=== PATIENT | male | born 1945 | race Caucasian/White ===

== ENCOUNTER 2024-09-30 11:21 | Emergency (ER) | payer OTHER, SELFPAY ==
[2024-09-30 11:48] VITALS: BP 124/63
[2024-09-30 12:15] LABS: % Basophils 0.2 % (0-2); % Eosinophils 1.4 % (0-6); % Immature Granulocytes 0.5 % (0-0.5); % Lymphocytes 19.3 % (20.5-51.1); % Neutrophils 70.6 % (42.2-75.2); Absolute Eosinophils 0.1 10^3/uL (0-0.7); Absolute Immature Granulocytes 0.1 10^3/uL (0-0.05); Absolute Lymphocytes 1.8 10^3/uL (1.2-3.4); Absolute Monocytes 0.7 10^3/uL (0.1-0.6); Absolute Neutrophils 6.5 10^3/uL (1.4-6.5); Hematocrit 35.5 % (39.0-52.0); Hemoglobin 11.4 g/dL (13.0-18.0); Mean Corp Hgb Conc. 32.1 g/dL (33.0-37.0); Mean Corpuscular Volume 93.4 fL (80.0-94.0); Mean Platelet Volume 9.5 fL (7.4-10.4); Nucleated Red Blood Cells % 0 % (-); Platelet Count 281 10^3/uL (130-400); Red Cell Dist. Width 14.1 % (11.5-14.5); White Blood Cell Count 9.1 10^3/uL (4.8-10.8)
[2024-09-30 12:29] LABS: COVID-19 Antigen Negative (Negative)
[2024-09-30 12:31] LABS: ALT (SGPT) 18 U/L (0-50); AST (SGOT) 22 U/L (17-59); Albumin 3.8 g/dl (3.5-5.0); Alkaline Phosphatase 67 U/L (38-126); Blood Urea Nitrogen 14 mg/dl (9-20); Calcium 8.9 mg/dl (8.4-10.2); Carbon Dioxide 28 mmol/L (22-30); Chloride 101 mmol/L (98-107); Glucose 243 mg/dl (70-99); Potassium 4.3 mmol/L (3.5-5.1); Sodium 138 mmol/L (135-145); Total Bilirubin 0.4 mg/dl (0.2-1.3); Total Protein 6.3 g/dl (6.3-8.2); eGFR > 60.00
[2024-09-30 14:30] VITALS: BP 132/60
--- NOTE | 2024-09-30 17:00 | ED.GENMED ---
History of Present Illness
General
Chief Complaint: Cold/Flu/URI Symptoms
Time Seen by Provider: 09/30/24 16:53
History of Present Illness
History of Present Illness:
Patient presents to the emergency department with cough and fatigue. Symptoms started about 10 days ago. He was seen by his primary doctor today who was concerned about his breath sounds on the right side. They report that his oxygen saturation
was around 91% on room air. Patient denies any persistent fevers. Endorses recent resolution of the infection that he had about 10 days ago
Past History
Past History
ED Past Medical History: HTN, Hypercholesterolemia, NIDDM and Other (Episodic changes in mental status)
ED Past Surgical History: None
Social History
Tobacco: Non-smoker
Alcohol: None
Drug: None
Living: with family
Employment: Retired
Family History
Family History: Hypertension
Phy Exam
Physical Exam
Physical Exam:
GENERAL APPEARANCE: NAD, well developed/ well nourished
EYES lids/conjunctiva normal
EARS/NOSE/THROAT Mucous membranes moist, uvula midline without oral pharyngeal erythema, exudate or swelling
HEAD/NECK normocephalic atraumatic, neck is supple.
RESPIRATORY respiratory effort normal, speaks in full sentences, no accessory muscle use. There are some rhonchi on the right side. There is no wheezing. There is no rales.
CARDIAC Regular rate and rhythm, no edema.
ABDOMINAL Soft, ND/NT.
MUSCLES/EXTREMITIES No abnormal range of motion, no swelling.
SKIN Warm, pink and dry. No rashes
NEUROLOGICAL Speech is clear and appropriate. Normal level of consciousness. 5/5 strength in all extremities.
PSYCH Normal mood and affect. Judgement/competence is appropriate
Course
Orders/Labs/Results
Orders:
Orders
09/30/24 11:22
Chest [CR Chest - 2 Views ] Urgent
Comment:
Reason For Exam: cough
09/30/24 12:03
COVID-19 Antigen Urgent
Source: Nasal Swab
Complete Blood Count/With Diff Urgent
Comprehensive Metabolic Panel Urgent
Influenza A+B Rapid Molecular Urgent
CINDY Source: Nasal Swab
Specimen Description:
Abnormal Lab Results
09/30/24
12:03
RBC 3.80 L 10^6/uL
(4.70-6.10)
Hgb 11.4 L g/dL
(13.0-18.0)
Hct 35.5 L %
(39.0-52.0)
MCHC 32.1 L g/dL
(33.0-37.0)
Abs Immat Gran (auto) 0.1 H 10^3/uL
(0-0.05)
Absolute Monos (auto) 0.7 H 10^3/uL
(0.1-0.6)
Lymphocytes % 19.3 L %
(20.5-51.1)
Glucose 243 H mg/dl
(70-99)
09/30/24 12:03
09/30/24 12:03
Vital Signs
Initial and Last Documented VS:
Initial Vital Signs
Temp Pulse Resp BP Pulse Ox
98.2 F 74 18 124/63 97
09/30/24 11:48 09/30/24 11:48 09/30/24 11:48 09/30/24 11:48 09/30/24 11:48
Last Documented Vital Signs
Temp Pulse Resp BP Pulse Ox
98.2 F 62 18 132/60 97
09/30/24 11:48 09/30/24 14:30 09/30/24 14:30 09/30/24 14:30 09/30/24 14:30
*Critical Care Note
Total Time (30-74mins, 75-104mins- exclusive of procedures): Not Applicable
ED Attending Note
ED Attending Note
ED Attending Note:
Patient with persisting cough and fatigue after upper respiratory infection. He is well-appearing and saturating well on room air here. Chest x-ray is clear. He has no leukocytosis. Hemodynamically stable. Suspect mild bronchitis or early
pneumonia that is x-ray negative. Will start on Augmentin and recommend close outpatient follow-up.
-
Portions of this chart may have been created with voice recognition software.� Occasional wrong word or��sound alike� substitutions may have occurred due to the inherent limitations of voice recognition software.
Discharge Plan
Departure
Patient Disposition: Home (Routine Discharge)
Date of Disposition: 09/30/24
Time of Disposition: 16:57
Patient with high blood pressure during this ER visit?: No
Discharge Problem:
Acute bronchitis
Instructions: Acute Bronchitis, Adult (DC)
Prescriptions:
New
amoxicillin-pot clavulanate 875-125 mg tablet
1 tab PO BID 5 Days Qty: 10 0RF
No Action
atorvastatin 80 MG tablet
80 mg PO HS
clopidogrel 75 MG tablet
75 mg PO DAILY
levothyroxine 75 MCG tablet
75 mcg PO DAILY
tamsulosin 0.4 MG capsule
0.4 mg PO HS
glimepiride 4 MG tablet
4 mg PO DAILY@1200
aspirin 81 MG tablet,chewable
81 mg PO HS
metoprolol succinate 25 MG tablet extended release 24 hr
25 mg PO DAILY
pioglitazone 30 MG tablet
30 mg PO DAILY
Januvia 100 MG tablet
100 mg PO DAILY
cetirizine [Zyrtec] 10 mg Tablet
10 mg PO DAILY
metformin 500 mg tablet extended release 24 hr
1,000 mg PO BID@0800,1700
PreserVision AREDS 4,296 mcg-226 mg-90 mg Capsule
1 cap PO BID@0800,1700
lacosamide 100 mg tablet
100 mg PO DAILY
Patient Comments:
09/06/2023: last filled 07/19/23, 60 tabs for 30 days from [id number]
lacosamide 100 mg tablet
50 mg PO QPM
Patient Comments:
09/06/2023: last filled 07/19/23, 60 tabs for 30 days from [id number]
cefdinir 300 mg Capsule
300 mg PO Q12 5 Days Qty: 10 0RF
Referrals:
UNKNOWN - PT DOES,NOT KNOW [Family Provider] -
Activity Restrictions/Additional Instructions:
Antibiotics as prescribed for bronchitis and possible early pneumonia. Please follow-up with your primary doctor in the next few days for recheck. Chest x-ray looked clear today. Your oxygen saturation was 97%
Interventions
Interventions:
*Risk Screen - Suicide Last Done: 09/30/24 11:48
*General Assessment Last Done: 09/30/24 11:48
*ED COVID-19 Vaccine History Last Done: 09/30/24 11:48
Discharge Date and Time
Print Language: SAMMARINESE
== END 2024-09-30 17:07 | disposition home or self-care (01) ==
LOC: EMR 11:21
PROVIDERS: Emergency Medicine; EMERGENCY PHYSICIAN Emergency Medicine
DX: J20.9 Acute bronchitis, unspecified (principal); Z11.52 Encounter for screening for COVID-19
CPT/HCPCS: 99284; 71046; 80053; 85025; 87502; 87811